=== PATIENT | male | born 1965 | race Caucasian/White ===

== ENCOUNTER → 2018-02-12 | Day surgery (SDC) | payer BC ==
[2018-02-11 10:36] LABS: BASOPHILS # (AUTO) 0.1 (0.0-0.1); EOSINOPHILS # (AUTO) 0.2 (0.0-0.4); EOSINOPHILS % 2.6 % (0.0-6.0); HEMATOCRIT 44.2 % (38.2-49.6); HEMOGLOBIN 15.1 g/dL (14.0-18.0); LYMPHOCYTES # (AUTO) 1.9 (1.0-3.2); LYMPHOCYTES % 28.2 % (18.0-39.1); MEAN CORPUSCULAR HGB CONC 34.2 g/dL (31-35); MONOCYTES # (AUTO) 0.7 (0.2-0.8); MONOCYTES % 10.5 % (4.4-11.3); NEUTROPHILS % 57.4 % (38.7-80.0); PLATELET COUNT 233 x10e3/uL (140-360); RED CELL DISTRIBUTION WIDTH 13.2 % (11.7-14.4)
[2018-02-11 10:51] LABS: ANION GAP 12.5 mmol/L (8-16); BLOOD UREA NITROGEN 23 mg/dL (7-26); BUN/CREATININE RATIO 23 (6-25); CALCIUM 9.6 mg/dL (8.4-10.2); CARBON DIOXIDE 28 mmol/L (22-29); CHLORIDE 104 mmol/L (98-107); CREATININE, SERUM 1.02 mg/dL (0.72-1.25); EST GLOMERULAR FILTRATION RATE > 60 ML/MIN (60-); GLUCOSE 89 mg/dL (74-118); POTASSIUM 4.5 mmol/L (3.5-5.1); SODIUM 140 mmol/L (136-145)
[2018-02-11 11:01] LABS: INR 1.11; PROTHROMBIN TIME 13.5 seconds (11.9-14.5)
[2018-02-11 16:40] VITALS: BP 119/86
[~2018-02-12] VITALS: Ht 177.8 cm; Wt 106.1 kg
[2018-02-12] VITALS (10 sets, daily range): BP systolic 126–136; BP diastolic 80–88
[~2018-02-12] MED LIST: ATORVASTATIN CA20 MG PO; BIVALIRUDIN 250 MG/VIAL IV ONE; FENTANYL CITRATE/PF 100MCG/2 ML INJ ONE; HEPARIN SOD (PORCINE) 1000 UNIT/ML 30ML ONE; HEPARIN SOD/SOD CHLORIDE 2,000 ML ONE; IOPAMIDOL 300MG/ML 100 ML INFUS..BTL IV ONE; LIDOCAINE HCL 2% LOCAL 20 ML VIAL ONE; METOPROLOL SUCC25 MG PO; MIDAZOLAM HCL 2 MG/2 ML VIAL ONE; NITROGLYCERIN/D5W 200 MCG/ML 250 ML ONE; SODIUM CHLORIDE 0.9% 100 ML 0 ML ONE; SODIUM CHLORIDE 0.9% 1000ML 1,000 ML ONE
--- NOTE | 2018-02-12 20:12 | Operative Report ---
DATE OF PROCEDURE: February 12, 2018 PROCEDURE INDICATIONS: Chest pain concerning for angina pectoris. The patient with a history of CAD, status post aortocoronary bypass, abnormal stress test. PROCEDURES PERFORMED 1. Left heart catheterization. 2. Selective coronary angiography x2. 3. CRUMP to left anterior descending selective angiography. 4. Saphenous vein graft to obtuse marginal, jump graft to left posterolateral branch angiography. 5. Selective saphenous vein graft to right posterior descending artery angiography. 6. Right common femoral artery 6-[place] Angio-Seal closure. 7. LV gram. PROCEDURE COMPLICATIONS: None. ESTIMATED BLOOD LOSS: Less than 15 mL. PROCEDURE SUMMARY: After consent was obtained, the patient was prepped and draped in a sterile fashion. The right femoral site was locally infiltrated with 2% lidocaine and access was obtained with micropuncture kit. A 6-[place] sheath was placed and JL4 and JR4 catheters were advanced for selective engagement in the left main, and then the right coronary artery. The JR4 was also used for selective engagement of the CRUMP to LAD, the SVG to obtuse marginal, jump graft to left posterolateral branch, as well as SVG to RPDA. At the end of the procedure and after confirmation of adequate anatomy for closure, a 6-[place] Angio-Seal was successfully deployed. FINDINGS: 1. LV pressure was 156/8 with end-diastolic pressure of 25. 2. Aortic pressure was 156/84. 3. The LV gram reveals mild local impairment of left ventricular systolic function with left ventricular ejection fraction of 45% to 50%. 4. The left main has luminal irregularities of large caliber that gives to LAD and circumflex. 5. LAD gives 2 central perforators in the diagonal prior to occlusion of 100%. Distal to the occlusion, the LAD is perfusing at the CRUMP to LAD. 6. Ramus intermedius is observed small to medium in caliber. It has a focal area of 50% to 60% stenosis. 7. The circumflex large is caliber. It has tubular and ostial 60%, mid portion area of 60% to 70% and it gives 2 small that is perfused via the SVG to obtuse marginal after which the circumflex is occluded 100%. Distal to this occlusion, left posterolateral branch is observed to be perfused via the jump graft SVG to obtuse marginal and left posterolateral branch. 8. The right coronary artery is moderately calcified in the proximal portion at 60%, in the mid portion has 70%, and 60% and 70% tandem lesions. The RPDA and RPLV are distal terminal branches. The SVG to RPDA is noted to be patent. 9. The CRUMP to LAD is patent and perfusing the distal LAD distal to the anastomosis. The LAD has focal area of 60% stenosis. At this point, the artery is less than 2 mm in caliber. 10. The SVG to OM/left posterolateral branch jump graft has proximal 30% stenosis, and is, otherwise patent. 11. The SVG to RPDA is patent with proximal 40% and mid 30% areas of stenosis. CONCLUSION: Patent grafts with at least moderate residual [place] disease and outflow level, notable distal left anterior descending after the CRUMP to left anterior descending has a focal area of 60% and the right posterior descending artery distal to the saphenous vein graft to right posterior descending artery has also focal area of 60% stenosis. The saphenous vein graft to jump graft obtuse marginal/left posterolateral branch has mild proximal disease, and the saphenous vein graft to right posterior descending artery has mild to moderate proximal to mid disease. Mild impairment of left ventricular systolic function, left ventricular ejection fraction 45% to 50% and elevated left ventricular diastolic pressure. RECOMMENDATIONS: 1. Diuretics starting tomorrow. 2. Coronary artery disease, congestive heart failure medical optimization. Diet, exercise, weight loss. 3. Bedrest for 4 hours today. Anticipate discharge later this afternoon. Job#: [id number]
== END | disposition home or self-care (01) ==
LOC: CATH LAB 10:43 → EDSTATUS 12:30
PROVIDERS: ATTEND Internal Medicine Cardiovascular Disease
DX: I25.810 Atherosclerosis of coronary artery bypass graft(s) without angina pectoris (principal); I25.82 Chronic total occlusion of coronary artery; Z95.1 Presence of aortocoronary bypass graft; I11.0 Hypertensive heart disease with heart failure; I50.9 Heart failure, unspecified; I25.2 Old myocardial infarction; E78.5 Hyperlipidemia, unspecified; R06.83 Snoring; E66.9 Obesity, unspecified; Z01.810 Encounter for preprocedural cardiovascular examination; Z01.812 Encounter for preprocedural laboratory examination; Z79.82 Long term (current) use of aspirin; Z68.36 Body mass index [BMI] 36.0-36.9, adult; Z87.891 Personal history of nicotine dependence
CPT/HCPCS: 36415; 77002; 80048; 85025; 85610; 93005; 93459; C1769; J2250; J7030; Q9967; 36140; 93452; J0583; J1644; J2001